=== PATIENT | male | born 1945 | race Caucasian/White ===

== ENCOUNTER 2020-06-28 10:43 | Inpatient (IN) | payer MEDICARE, SELFPAY ==
[2020-06-28 11:43] LABS: ALT (SGPT) 67 U/L (8-55); AST (SGOT) 43 U/L (5-34); Albumin 3.9 g/dL (3.4-4.8); Alkaline Phosphatase 106 U/L (40-110); Anion Gap 16 mmol/L (10-20); BUN (Urea Nitrogen) 21 mg/dL (8.4-25.7); Bilirubin, Total 1.1 mg/dL (0.2-1.2); Calc. Creatinine Clearance 0 mL/min (70-130); Calcium 9.4 mg/dL (7.8-10.44); Carbon Dioxide 24 mmol/L (23-31); Chloride 101 mmol/L (98-107); Globulin 3.4 g/dL (2.4-3.5); Glucose 123 mg/dL (83-110); Potassium 4.2 mmol/L (3.5-5.1); Protein, Total 7.3 g/dL (5.8-8.1); Sodium 137 mmol/L (136-145)
[2020-06-28 11:47] LABS: Hemoglobin 14.7 g/dL (13.5-17.5); Mean Corpuscular HGB CONC 32.8 g/dL (32.0-36.0); Mean Corpuscular Volume 82.4 fl (81.2-95.1); Mean Platelet Volume 10.3 fl (7.4-10.4); Red Blood Cell (RBC) Count 5.44 10x6/uL (4.32-5.72); White Blood Cell (WBC) Count 47.1 10x3/uL (3.5-10.5)
[2020-06-28 11:56] LABS: Bilirubin Neg (Negative); Blood, Urine 25 (Negative); Glucose, Urine (Dipstick) Normal (Negative); Ketone, Urine Negative (Negative); Leukocyte 25 (Negative); Nitrite Negative (Negative); Protein, Urine (Dipstick) 30 mg/dl (Neg-Trace)
[2020-06-28 11:58] LABS: Clarity Clear (Clear)
[2020-06-28 12:16] LABS: Bacteria/HPF Rare-Few HPF (None Seen); RBC/HPF 0-3 HPF (0-3); Squamous Epithelial 0-3 HPF (0-3)
[2020-06-28 12:17] LABS: Mucous/LPF Rare LPF (<2+)
[2020-06-28 12:50] LABS: Band 1 % (5-11); Lymphocytes 14 % (21-51); Metamyelocyte 1 % (0-0); Monocytes 6 % (0-10); Myelocyte 2 % (0-0); Neutrophil 76 % (42-75)
[2020-06-28 12:51] LABS: MDiff Complete? YES; Manual Diff?? YES; Platelet Count 90 10x3/uL (150-450)
[2020-06-28 12:52] LABS: Reflex for Review?? YES
[2020-06-28 12:53] LABS: Platelet Morphology Comment Appears Decreased; Polychromasia SLIGHT = 2-3 cells (100X) (0-2/hpf)
[2020-06-28] MEDS ORDERED: Ondansetron PF 4 MG/2 ML Vial IVP PRN (14:02)
[2020-06-28] MEDS ORDERED: HYDROcodone/Acetaminophen 5/325 mg Tablet PO PRN (14:02)
[2020-06-28] MEDS ORDERED: Bisacodyl 5 MG TAB PO PRN (14:02)
[2020-06-28 15:22] VITALS: BMI 25.9
[2020-06-28] MEDS ORDERED: Aspirin Chewable 81 MG TAB PO SCH (15:55)
[2020-06-28] MEDS: Atorvastatin Calcium 20 MG TAB PO SCH (21:11)
[2020-06-28] MEDS: Famotidine 20 MG TAB PO SCH (21:12)
[2020-06-29 05:30] LABS: Hemoglobin 12.8 g/dL (13.5-17.5); Mean Corpuscular HGB CONC 32.2 g/dL (32.0-36.0); Mean Corpuscular Hemoglobin 26.6 pg (27.0-33.0); Mean Corpuscular Volume 82.5 fl (81.2-95.1); Mean Platelet Volume 9.9 fl (7.4-10.4); Platelet Count 69 10x3/uL (150-450); RBC Distribution Width 14.7 % (11.5-14.5); Red Blood Cell (RBC) Count 4.81 10x6/uL (4.32-5.72)
[2020-06-29 05:42] LABS: Anion Gap 14 mmol/L (10-20); BUN (Urea Nitrogen) 17 mg/dL (8.4-25.7); Calc. Creatinine Clearance 96 mL/min (70-130); Calcium 8.6 mg/dL (7.8-10.44); Carbon Dioxide 26 mmol/L (23-31); Cardiac Risk 5.6 (Less than 4.5); Chloride 98 mmol/L (98-107); Cholesterol 96 mg/dl (< 200 Desired); Glucose 112 mg/dL (83-110); HDL Cholesterol 17 mg/dL (>60 Neg Risk); LDL Cholesterol, Calculated 62 mg/dL; Potassium 3.9 mmol/L (3.5-5.1); Sodium 134 mmol/L (136-145); Triglycerides 85 mg/dL (Less than 150)
[2020-06-29 06:22] LABS: Band 12 % (5-11); Lymphocytes 2 % (21-51); Metamyelocyte 4 % (0-0); Monocytes 9 % (0-10); Myelocyte 6 % (0-0); Neutrophil 66 % (42-75); Nucleated RBC 1 % (0); Reactive Lymphocytes 1 % (0-10)
[2020-06-29 06:25] LABS: Anisocytosis SLIGHT = 6-15 cells (100X) (0-5/hpf); Giant Platelets SLIGHT; Microcytosis SLIGHT = 6-15 cells (100X) (0-5/hpf); Vacuoles SLIGHT
[2020-06-29 06:26] LABS: Platelet Morphology Comment Appears Decreased
[2020-06-29 06:28] LABS: MDiff Complete? YES; Manual Diff?? YES
[2020-06-29] MEDS: Famotidine 20 MG TAB PO SCH ×2 (08:06→23:00)
[2020-06-29] MEDS: Aspirin 81 mg Enteric Coated Tablet PO SCH (08:06)
[2020-06-29] MEDS ORDERED: Enoxaparin Sodium 40 MG/0.4 ML SYRINGE SC SCH (09:00)
[2020-06-29 14:59] LABS: Hemoglobin A1c 5.1 % (4.0-6.0)
[2020-06-29] MEDS ORDERED: Haloperidol Lactate 5 MG/ML VIAL SLOW IVP PRN (15:11)
[2020-06-29] MEDS ORDERED: Haloperidol Lactate 5 MG/ML VIAL ONE (22:51)
[2020-06-29] MEDS: Atorvastatin Calcium 20 MG TAB PO SCH (23:00)
[2020-06-30] MEDS: Acetaminophen 325 MG TAB PO PRN ×2 (01:55→16:38)
[2020-06-30] MEDS: Apixaban 5 MG TAB PO SCH ×3 (01:56→20:15)
[2020-06-30 08:44] LABS: Anion Gap 14 mmol/L (10-20); BUN (Urea Nitrogen) 15 mg/dL (8.4-25.7); Calc. Creatinine Clearance 87 mL/min (70-130); Calcium 9.3 mg/dL (7.8-10.44); Carbon Dioxide 27 mmol/L (23-31); Chloride 99 mmol/L (98-107); Glucose 109 mg/dL (83-110); Potassium 4.1 mmol/L (3.5-5.1); Sodium 136 mmol/L (136-145)
[2020-06-30] MEDS: Famotidine 20 MG TAB PO SCH ×2 (08:51→20:15)
[2020-06-30] MEDS: Aspirin 81 mg Enteric Coated Tablet PO SCH (08:51)
[2020-06-30 08:55] LABS: Hemoglobin 14.4 g/dL (13.5-17.5); Mean Corpuscular HGB CONC 33.1 g/dL (32.0-36.0); Mean Corpuscular Hemoglobin 26.9 pg (27.0-33.0); Mean Corpuscular Volume 81.2 fl (81.2-95.1); Mean Platelet Volume 10.4 fl (7.4-10.4); Platelet Count 89 10x3/uL (150-450); RBC Distribution Width 14.9 % (11.5-14.5); Red Blood Cell (RBC) Count 5.36 10x6/uL (4.32-5.72); White Blood Cell (WBC) Count 39.8 10x3/uL (3.5-10.5)
[2020-06-30 09:23] LABS: MDiff Complete? YES
[2020-06-30 09:42] LABS: Band 8 % (5-11); Eosinophils 1 % (0-10); Lymphocytes 6 % (21-51); Metamyelocyte 1 % (0-0)
[2020-06-30 09:47] LABS: Monocytes 9 % (0-10); Neutrophil 75 % (42-75)
[2020-06-30 09:49] LABS: Burr Cells SLIGHT = 2-5 cells (100X) (0-1/hpf); Platelet Morphology Comment Appears Decreased
[2020-06-30] MEDS: Sodium Chloride 0.9% 1,000 ML IV SCH ×2 (12:34→22:51)
[2020-06-30 19:07] LABS: SARS-CoV-2 PCR by NAA Not Detected (NotDetected)
[2020-06-30] MEDS: Atorvastatin Calcium 20 MG TAB PO SCH (20:15)
[2020-07-01 05:46] LABS: Hemoglobin 13.4 g/dL (13.5-17.5); Mean Corpuscular HGB CONC 31.9 g/dL (32.0-36.0); Mean Corpuscular Hemoglobin 26.5 pg (27.0-33.0); Mean Platelet Volume 10.5 fl (7.4-10.4); Platelet Count 92 10x3/uL (150-450); Red Blood Cell (RBC) Count 5.06 10x6/uL (4.32-5.72); White Blood Cell (WBC) Count 40.5 10x3/uL (3.5-10.5)
[2020-07-01 06:02] LABS: Anion Gap 15 mmol/L (10-20); BUN (Urea Nitrogen) 20 mg/dL (8.4-25.7); Calc. Creatinine Clearance 87 mL/min (70-130); Calcium 8.7 mg/dL (7.8-10.44); Carbon Dioxide 24 mmol/L (23-31); Chloride 105 mmol/L (98-107); Glucose 101 mg/dL (83-110); Magnesium 1.8 mg/dL (1.6-2.6); Potassium 3.8 mmol/L (3.5-5.1); Sodium 140 mmol/L (136-145)
[2020-07-01] MEDS ORDERED: Atropine Sulfate 0.4 mg/1 ml Vial IVP SCH ×2 (06:15→08:00)
[2020-07-01] MEDS ORDERED: Magnesium Sulfate/D5W 1 GM/100 ML BAG IVPB SCH (06:30)
[2020-07-01] MEDS ORDERED: Potassium Chloride 20 MEQ TAB PO SCH (06:30)
[2020-07-01 06:58] LABS: Lymphocytes 6 % (21-51); Monocytes 20 % (0-10); Nucleated RBC 1 % (0); Reactive Lymphocytes 9 % (0-10)
[2020-07-01 07:01] LABS: Band 9 % (5-11)
[2020-07-01 07:03] LABS: Metamyelocyte 5 % (0-0); Myelocyte 4 % (0-0); Neutrophil 47 % (42-75)
[2020-07-01 07:05] LABS: Anisocytosis SLIGHT = 6-15 cells (100X) (0-5/hpf); Large Platelets SLIGHT; Microcytosis SLIGHT = 6-15 cells (100X) (0-5/hpf); Platelet Clumps SLIGHT
[2020-07-01 07:06] LABS: Toxic Granulation SLIGHT; Vacuoles MODERATE
[2020-07-01 07:08] LABS: MDiff Complete? YES; Manual Diff?? YES
[2020-07-01] MEDS ORDERED: Atropine Sulfate 1 mg/10 ml Syringe ONE (07:12)
[2020-07-01] MEDS: Sodium Chloride 0.9% 1,000 ML IV SCH (09:53)
[2020-07-01] MEDS: Famotidine 20 MG TAB PO SCH (09:54)
[2020-07-01] MEDS: Apixaban 5 MG TAB PO SCH (09:54)
[2020-07-01] MEDS: Aspirin 81 mg Enteric Coated Tablet PO SCH (09:54)
[2020-07-01 11:36] VITALS: BP 115/59; TEMP 98.3
== END 2020-07-01 12:53 | disposition hospice, inpatient (51) | DRG 840 ==
LOC: CSHERS 10:43 → CSHTELE 15:03
PROVIDERS: ADMIT Family Medicine; ATTEND Internal Medicine
DX: C95.90 Leukemia, unspecified not having achieved remission (principal); G93.41 Metabolic encephalopathy; I48.20 Chronic atrial fibrillation, unspecified; Z20.822 Contact with and (suspected) exposure to COVID-19; Z66 Do not resuscitate; Z51.5 Encounter for palliative care
CPT/HCPCS: 36416; 70450; 70551; 71045; 74176; 80048; 80053; 80061; 81003; 81015; 83036; 83735; 85025; 85060; 87086; 87635; 88184; 88185; 93005; 93010; 93306; J0461; J1630; J1650; J3475; J7050; U0003; U0005